=== PATIENT | male | born 1985 | race Two or more races ===

== ENCOUNTER 2018-12-15 20:04 | Inpatient (IN) | payer MEDICAID, MEDICARE ==
[~2018-12-15] VITALS: Ht 165.1 cm; Wt 83.5 kg
--- NOTE | 2018-12-15 20:20 | NUR ---
URINE COLLECTED AND SENT TO LAB
--- NOTE | 2018-12-15 20:20 | NUR ---
PT BIBSELF C/O LLQ PAIN. PT ALSO C/O NAUSEA, HEADACHE, DIZZINESS. DENIES SOB, CP. NOTED HYPERTENSION ON ARRIVAL, ER MD AWARE. PT AAOX4. RESPIRATIONS EVEN AND UNLABORED. SKIN INTACT. ABLE TO AMBULATE WITH STEADY GAIT. PLACED IN GOWN AND ON CONTINUOUS FLOOR GRINDER, WILL CONTINUE TO MONITOR
--- NOTE | 2018-12-15 20:40 | NUR ---
ER MD AT BEDSIDE FOR EVALUATION
--- NOTE | 2018-12-15 20:50 | NUR ---
IV INITATED R HAND 18G. LABS DRAWN FROM SITE AND SENT TO LAB. IV INTACT AND PATENT, PLACED ON SALINE LOCK
[2018-12-15] MEDS ORDERED: NICARDIPINE HCL 20 MG in IV D5W 192 ML IV PRN (21:00)
[2018-12-15] MEDS ORDERED: NICARDIPINE IN DEXTROSE,ISO-OS 200 ML IV ONE (21:06)
--- NOTE | 2018-12-15 21:19 | NUR ---
PT BROUGHT BY RADIOLOGY TO CT
--- NOTE | 2018-12-15 21:29 | NUR ---
PT RETURNED FROM CT
[2018-12-15] MEDS ORDERED: NIFEdipine XL (30MG) 30 MG TAB PO SCH (21:30)
[2018-12-15 21:32] LABS: BASOPHILS % (AUTO) 0.5 % (0.0-2.0); EOSINOPHILS % (AUTO) 0.7 % (0.0-6.0); HEMATOCRIT 53 % (39-51); LYMPHOCYTES # (AUTO) 0.9 /CMM (0.8-4.8); LYMPHOCYTES % (AUTO) 12.8 % (20.0-44.0); MEAN CORPUSCULAR HGB CONC 34 g/dl (31.0-36.0); MEAN CORPUSCULAR VOLUME 89 fL (80-96); MONOCYTES # (AUTO) 0.5 /CMM (0.1-1.30); MONOCYTES % (AUTO) 7.2 % (2.0-12.0); NEUTROPHILS # (AUTO) 5.6 /CMM (1.8-8.9); NEUTROPHILS % (AUTO) 78.8 % (43.0-81.0); PLATELET COUNT (AUTO) 216 /CMM (150-450); RED BLOOD CELL COUNT(AUTO) 5.93 MIL/uL (4.5-6.0); WHITE BLOOD COUNT (AUTO) 7.1 K/uL (4.3-11.0)
[2018-12-15 21:38] LABS: ALANINE AMINOTRANSFERASE 46 U/L (12-78); ALBUMIN 3.6 g/dL (3.4-5.0); ALKALINE PHOSPHATASE 67 U/L (46-116); ASPARTATE AMINOTRANSFERASE 29 U/L (15-37); BILIRUBIN,DIRECT 0.1 mg/dL (0.0-0.2); BILIRUBIN,TOTAL 0.9 mg/dL (0.2-1.0); CALCIUM, SERUM 8.5 mg/dL (8.5-10.1); CARBON DIOXIDE 23 mmol/L (21-32); CHLORIDE 106 mmol/L (98-107); GLUCOSE 130 mg/dL (74-106); LIPASE 226 U/L (73-393); POTASSIUM 4.1 mmol/L (3.5-5.1); SODIUM SERUM 140 mmol/L (136-145); TOTAL PROTEIN, SERUM 7.3 g/dL (6.4-8.2); UREA NITROGEN, BLOOD 10 mg/dL (7-18)
[2018-12-15 21:52] LABS: APPEARANCE,URINE Clear (CLEAR); BILIRUBIN,URINE SMALL (NEGATIVE); BLOOD, URINE Small Ery/uL (NEGATIVE); COLOR,URINE Yellow (YELLOW); KETONES,URINE Trace (NEGATIVE); LEUKOCYTE ESTERASE ,URINE Negative (NEGATIVE); NITRITE, URINE Negative (NEGATIVE); PH,URINE 5.5 (5.0-8.0); PROTEIN,URINE >=300 mg/dl (NEGATIVE); UGLUCOSE Negative (NEGATIVE); UROBILINOGEN,URINE 0.2 EU/dL (0.2)
[2018-12-15] MEDS ORDERED: NIFEdipine XL (30MG) 30 MG TAB PO ONE ×2 (21:53→23:30)
--- NOTE | 2018-12-15 21:55 | NUR ---
PER DR. GUERRERO, WILL ADMINISTER PROCARDIA XL 30MG PO X1 NOW IN ORDER TO TITRATE PT OFF NICARDIPINE IV DRIP
[2018-12-15 21:57] LABS: BACTERIA,URINE Rare /HPF (None Seen); SQUAMOUS EPITHELIAL CELL,UR Few /HPF (None Seen); WBC,URINE NONE SEEN /HPF (0-3)
[2018-12-15 21:58] LABS: B-TYPE NATRIURETIC PEPTIDE 162 PG/ML (0-125); MAGNESIUM 1.9 mg/dL (1.8-2.4)
[2018-12-15 21:59] LABS: ALCOHOL, BLOOD < 3 mg/dL (0-0)
--- NOTE | 2018-12-15 22:47 | NUR ---
GAVE REPORT TO FLAVIO GARRISON FOR [facility]
--- NOTE | 2018-12-15 23:06 | NUR ---
PT TRANSFERRED PER [facility]
[2018-12-15 23:07] VITALS: BP 160/115
[2018-12-15 23:15] VITALS: BP 166/106
[2018-12-15 23:30] VITALS: BP 166/92
[2018-12-15] MEDS ORDERED: hydrALAZINE HCL IV 20 MG VIAL IV PRN (23:30)
[2018-12-15] MEDS ORDERED: hydrALAZINE HCL 50 MG TABLET PO SCH (23:30)
[2018-12-15] MEDS ORDERED: Z GUARD REMEDY 2 OZ OINT TP PRN (23:30)
[2018-12-15] MEDS ORDERED: ZOLPIDEM TARTRATE 5 MG TABLET PO PRN (23:30)
[2018-12-15] MEDS ORDERED: ACETAMINOPHEN 325 MG TABLET PO PRN (23:30)
[2018-12-15] MEDS ORDERED: ONDANSETRON HCL/PF 4 MG/2 ML VIAL IVP PRN (23:30)
--- NOTE | 2018-12-15 23:30 | NUR ---
GENERAL FOREMAN - Admission - Note - pt received from ER, awake alert, oriented x 4, pt is able to ambulate, pt complained of some pain in his left leg and head. CT head was negative, pt does not have any motor deficit, able to move all extremities, and coordination is intact. BP is 160/115. pt is hesitant to answer questions about past medical history. pt says he lives with his father, Pete Emanuel but said he has no phone number and he is out of town. pt has right hand 18g and right forearm 18g iv, both in place and patent. per Den Valenzuela stop nicardipine drip and start pt on PO bp meds. pt is able to be transferred to [facility] since no drip.
[2018-12-15 23:46] VITALS: BP 163/115
[2018-12-15] MEDS: MORPHINE SULFATE INJ 2 MG/ML DISP.SYRIN IV PRN (23:50)
[2018-12-16] VITALS: BP 157/101
[2018-12-16 00:15] VITALS: BP 172/113
--- NOTE | 2018-12-16 00:20 | NUR ---
pt transferred to [facility] [phone]
--- NOTE | 2018-12-16 00:35 | NUR ---
RN NOTES - PAIN MEDICATION RECEIVED PATIENT FROM ICU. PATIENT RECEIVED MORPHINE 2MG IV LAST @ 2350, BUT INEFFECTIVE, AND IS ASKING FOR MORE PAIN MEDICATION. HUY HERMOSILLO MADE AWARE REGARDING PATIENT'S C/O PAIN, WITH NEW ORDER FOR DILAUDID 1MG IV Q4H PRN
[2018-12-16] MEDS ORDERED: HYDROMORPHONE INJ 0.5 MG/0.5 ML SYRINGE IV PRN ×2 (01:00→05:00)
[2018-12-16] MEDS ORDERED: HYDROMORPHONE 1 MG/1 ML DISP.SYRIN ONE (01:20)
[2018-12-16 02:27] LABS: MONOCYTES % (MANUAL) 5 % (0-11.0); NEUTROPHILS % (MANUAL) 85 (42-76)
[2018-12-16 02:28] LABS: LYMPHOCYTES % (MANUAL) 10 % (16-48)
[2018-12-16 04:00] VITALS: BP_SYST 133; BP_SYST 135; BP_DIAS 97
[2018-12-16] MEDS: MORPHINE SULFATE INJ 2 MG/ML DISP.SYRIN IV PRN ×2 (04:12→07:43)
--- NOTE | 2018-12-16 06:13 | NUR ---
SENIOR CUSTOMER SERVICE REPRESENTATIVE NOTES PATIENT REFUSING LAB DRAW AT THIS TIME, STATING "I JUST WENT TO SLEEP, CAN YOU COME BACK LATER?" EXPLAINED RISKS AND CONSEQUENCES OF REFUSING/POSTPONING LAB WORK, INCLUDING DELAY IN CARE AND FURTHER INJURY." PATIENT VERBALIZES UNDERSTANDING, NOTED TO GO BACK TO SLEEP. VITALS STABLE AT THIS TIME. WILL CONTINUE TO MONITOR
--- NOTE | 2018-12-16 07:00 | NUR ---
RN CLOSING NOTES PATIENT CHANGED HIS MIND AND AGREED TO BLOOD DRAW. EXPLAINED PLAN OF CARE, PATIENT VERBALIZED UNDERSTANDING. LATEST BLOOD PRESSURE READING 130/70, PATIENT STATES HEADACHE HAS NOW DISSIPATED. WILL ENDORSE THE PATIENT TO THE AM SHIFT NURSE FOR CONTINUITY OF CARE
--- NOTE | 2018-12-16 07:00 | NUR ---
[facility] RN OPENING NOTES RECEIVED PT LYING ON BED,ALERT/ORIENTED X3.ON TELE HR IS 90 WITH NSR.ON ROOM AIR,TOLERATING WELL.NO SOB AND ACUTE DISTRESS NOTED.SEVERE PAIN NOTED ON THE HEAD 10/17.CAN ABLE TO WALK WITH ASSISTANCE. IV LINE IS ON RIGHT HAND G18,SL AND RIGHT FA G18,SL.SITE IS CLEAN,DRY AND INTACT.NO INFILTRATION NOTED.SAFETY IS MAINTAINED AT ALL TIMES.CALL LIGHT IS WITHIN REACH.WILL CONTINUE TO MONITOR THE PT CLOSELY.
[2018-12-16 07:12] LABS: BASOPHILS % (AUTO) 0.6 % (0.0-2.0); EOSINOPHILS % (AUTO) 1.9 % (0.0-6.0); HEMATOCRIT 53 % (39-51); HEMOGLOBIN 18.2 g/dL (13.5-17.5); LYMPHOCYTES # (AUTO) 1.7 /CMM (0.8-4.8); LYMPHOCYTES % (AUTO) 24.8 % (20.0-44.0); MEAN CORPUSCULAR HGB CONC 35 g/dl (31.0-36.0); MEAN CORPUSCULAR VOLUME 89 fL (80-96); MONOCYTES # (AUTO) 0.7 /CMM (0.1-1.30); MONOCYTES % (AUTO) 9.7 % (2.0-12.0); NEUTROPHILS # (AUTO) 4.2 /CMM (1.8-8.9); PLATELET COUNT (AUTO) 213 /CMM (150-450); RED BLOOD CELL COUNT(AUTO) 5.89 MIL/uL (4.5-6.0); WHITE BLOOD COUNT (AUTO) 6.7 K/uL (4.3-11.0)
[2018-12-16 07:20] LABS: ALBUMIN 3.7 g/dL (3.4-5.0); BILIRUBIN,TOTAL 0.7 mg/dL (0.2-1.0); CALCIUM, SERUM 8.6 mg/dL (8.5-10.1); CREATININE 0.9 mg/dL (0.6-1.3); PHOSPHORUS 3.5 mg/dL (2.5-4.9); POTASSIUM 3.4 mmol/L (3.5-5.1); TOTAL PROTEIN, SERUM 7.4 g/dL (6.4-8.2)
[2018-12-16] MEDS ORDERED: HYDROMORPHONE 1 MG/1 ML DISP.SYRIN IV PRN (07:28)
[2018-12-16 07:54] LABS: THYROID STIMULATING HORMONE 5.627 uIU/mL (0.358-3.74)
[2018-12-16 08:00] VITALS: BP 127/88
[2018-12-16] MEDS: hydrALAZINE HCL 50 MG TABLET PO SCH ×2 (08:23→14:15)
[2018-12-16] MEDS ORDERED: HYDROCHLOROTHIAZIDE 25 MG TABLET PO SCH (09:00)
[2018-12-16] MEDS ORDERED: NIFEdipine XL (30MG) 30 MG TAB PO SCH (09:00)
[2018-12-16] MEDS ORDERED: LOSARTAN POTASSIUM 50 MG TABLET PO SCH (09:00)
[2018-12-16] MEDS ORDERED: POTASSIUM CHLORIDE 20 MEQ TAB.PRT.SR PO SCH (10:00)
[2018-12-16] MEDS ORDERED: NIFE30TA89 PO (10:50)
[2018-12-16] MEDS ORDERED: LOSA50TA3 PO (10:50)
[2018-12-16] MEDS ORDERED: HYDR-4077 PO (10:50)
[2018-12-16] MEDS ORDERED: HYDR25TA4 PO (10:50)
[2018-12-16] MEDS ORDERED: oxyCODONE/APAP (5/325 MG) 1 UDTAB TABLET PO PRN (11:00)
[2018-12-16 16:00] VITALS: BP 111/70
--- NOTE | 2018-12-16 16:00 | NUR ---
MS RAIL GANG SUPERVISOR NOTES DR.SANTA GERARD(PCP)ORDERED TO DISCHARGE THE PT.PT IS REFUSED TO LEAVE TODAY.BY THE HELP OF INSTRUCTIONAL TECHNOLOGIST AND BUTTERMAKER,PT IS READY TO LEAVE.ALL THE IV LINES ARE REMOVED.CLOTHING HAS DONE.PT IS CLEAN AND DRY.PT REFUSED TO TAKE THE DISCHARGE PAPER WORK EXCEPT THE MEDICATION PRESCRIPTION.PT AMBULATED BY SELF WITH INSTRUCTIONAL TECHNOLOGIST.
--- NOTE | 2018-12-16 16:11 | NUR ---
JENNIFER was informed by high risk case manager Sara that pt. is refusing to leave the hospital in spite of being medically cleared by Dr. Howe. JENNIFER along with high risk case manager Kathy, pt's BLADIMIR Harrison and security met with the pt. bedside. Pt. is malingering stating he is not ready to be discharged yet. SW reiterated to the pt. that he has been cleared by the doctor and he will have to leave the premises. Pt. cooperated with BLADIMIR Harrison in getting his discharge paperwork. Pt to be escorted out of [facility] with security. JENNIFER updated [facility] CRN Urszula with aforementioned discharge plan.
== END 2018-12-16 16:10 | disposition home or self-care (01) | DRG 199 ==
LOC: ER 20:07 → ICU 22:34 → TELE-TD 12-16 00:18 → TELE1 12-16 10:08 → MEDSG1 12-16 10:54
PROVIDERS: ADMIT Nurse Practitioner Acute Care; ATTEND Student in an Organized Health Care Education/Training Program
DX: I16.0 Hypertensive urgency (principal); G89.4 Chronic pain syndrome; Z91.19 Patient's noncompliance with other medical treatment and regimen; I10 Essential (primary) hypertension; M24.50 Contracture, unspecified joint
CPT/HCPCS: 36415; 70450-TC; 71045-TC; 76770-TC; 80048-TC; 80053-TC; 80061-TC; 80076-TC; 80305; 81000-TC; 83540-TC; 83690-TC; 83735-TC; 83880; 84100-TC; 84443-TC; 84484-TC; 85025-TC; 85730-TC; 87081-TC; 93307-TC; G0378; G0480; J1170; J2270

== ENCOUNTER 2019-05-15 18:00 | Emergency (ER) | payer MEDICAID ==
[~2019-05-15] VITALS: Ht 162.6 cm; Wt 86.2 kg
[~2019-05-15 18:00] MED LIST: HYDR-4077 PO; HYDR25TA4 PO; LOSA50TA3 PO; NIFE-35 PO
--- NOTE | 2019-05-15 18:05 | NUR ---
"c/o right foot pain started this morning when i woke up" 12/17 ps, pt aaox4, -sob, nad noted, vss, pending md chu
--- NOTE | 2019-05-15 18:50 | NUR ---
pt's bp elevated, dr. obrien aware
[2019-05-15] MEDS ORDERED: CLONIDINE HCL 0.1 MG TABLET ONE ×2 (19:04→20:03)
[2019-05-15] MEDS ORDERED: CLONIDINE HCL 0.1 MG TABLET PO ONE ×2 (19:30→20:00)
--- NOTE | 2019-05-15 19:30 | NUR ---
bp checked q30min. elevated, md aware. wctm
[2019-05-15] MEDS ORDERED: HYDROCODONE/APAP 5/325MG 1 EACH TABLET PO ONE (20:00)
[2019-05-15] MEDS ORDERED: HYDROCODONE/APAP 5/325MG 1 EACH TABLET ONE (20:03)
--- NOTE | 2019-05-15 21:11 | NUR ---
Patient discharged to home in stable condition. Written and verbal after care instructions given. Patient verbalizes understanding of instruction.
[2019-05-15 21:12] VITALS: BP 147/114
== END 2019-05-15 21:15 | disposition home or self-care (01) ==
LOC: ER 18:00
DX: S90.31XA Contusion of right foot, initial encounter (principal); I10 Essential (primary) hypertension; F17.210 Nicotine dependence, cigarettes, uncomplicated; G89.29 Other chronic pain; Z60.2 Problems related to living alone; Z79.899 Other long term (current) drug therapy; W22.8XXA Striking against or struck by other objects, initial encounter; Y93.89 Activity, other specified; Y92.89 Other specified places as the place of occurrence of the external cause; Y99.8 Other external cause status
CPT/HCPCS: 73630-TC